=== PATIENT | male | born 1975 | race Asian ===

== ENCOUNTER 2016-11-27 09:09 | Emergency (ER) | payer OTHER ==
[~2016-11-27] VITALS: Ht 180.3 cm; Wt 82.4 kg
[2016-11-27 09:14] VITALS: TEMP 36.9; Ht 180.3 cm; Wt 82.4 kg
[2016-11-27] MEDS ORDERED: ONDANSETRON INJ 2 MG/ML 2 ML VIAL IV STA (09:46)
[2016-11-27] MEDS ORDERED: HYDROmorphone INJ 0.5 MG/0.5 ML SYR IV STA (09:46)
[2016-11-27 09:52] LABS: HEMATOCRIT 45.1 % (42-52); IG% 0.2 %; LYMPH % 5.7 %; LYMPH ABS # 0.47 K/uL (1.2-3.4); MEAN CELL VOLUME 81.7 fL (80-100); MEAN CORPUSCULAR HEMOGLOBIN 28.3 pg (25-34); MEAN CORPUSCULAR HGB CONC 34.6 g/dl (32-36); MEAN PLATELET VOLUME 9.6 fL (7.4-10.4); MONO % 2.7 %; NEUT % 91.4 %; PLATELET COUNT 239 K/uL (130-400); RED BLOOD COUNT 5.52 M/uL (4.7-6.1); WHITE BLOOD COUNT 8.19 K/uL (4.8-10.8)
[2016-11-27 09:53] LABS: COMPLETE YES
--- NOTE | 2016-11-27 09:54 | EMERGENCY ROOM VISIT NOTE ---
History Report prepared by Serg: Maribell Juares Under the Supervision of: Dr. Ino Padilla D.O. First contact with patient: 09:38 Chief Complaint: ABDOMINAL PAIN Stated Complaint: ABDOMINAL PAIN,FEVER,DIAHRREA Nursing Triage Summary: pt c/o bilat abd pain started at 0500 this am, n/v/d started yesterday am., denies any fever today. History of Present Illness The patient is a 41 year old male who presents to the Emergency Room with complaints of worsening epigastric abdominal pain starting about 5 hours ago. He describes it to be a cramping pain. He currently rates a pain intensity of 5- 7/10. He reports nausea but denies vomiting. He also reports diarrhea starting yesterday. The patient denies fevers, chills, chest pain, shortness of breath, urinary symptoms, or any other complaints. He denies any known recent ill contacts. The patient is an anesthesiologist. Source of History: patient Onset: about 5 hours ago Position: abdomen (epigastric) Symptom Intensity: 5-7/10 Timing: worsening Associated Symptoms: + diarrhea, + nausea, No chills, No fevers, No urinary symptoms, No vomiting Review of Systems See above for pertinent positives & negatives. A total of 10 systems reviewed and were otherwise negative. Past Medical & Surgical Medical Problems: (1) GERD (gastroesophageal reflux disease) Family History Patient reports no known family medical history. Social History Smoking Status: Never Smoker Drug Use: none Marital Status: Housing Status: lives with family Occupation Status: employed Current/Historical Medications Scheduled Diphenoxylate/Atropine (Lomotil 2.5-0.025 mg), 1 TAB PO QID Fluticasone Propionate (Nasal) (Flonase Allergy Relief), 1 SPRAY PETER DAILY Lansoprazole (Prevacid), 30 MG PO DAILYBD Ondasetron Odt (Zofran Odt), 4 MG SL Q6H Timolol Maleate (Timolol 0.5% Oph Soln 15 Ml), 1 DROP OPB DAILY Allergies Coded Allergies: No Known Allergies (Unverified , 11/27/16) Physical Exam Vital Signs Date Time Temp Pulse Resp B/P Pulse Ox O2 Delivery O2 Flow Rate FiO2 11/27/16 12:42 83 18 118/90 98 11/27/16 11:36 85 18 118/85 97 Room Air 3/23/17 10:54 84 18 115/78 99 Room Air 11/27/16 09:14 36.9 97 22 133/95 96 Room Air Physical Exam GENERAL: Patient is well appearing and in no acute distress. HEENT: No acute trauma, normocephalic atraumatic, mucous membranes moist, no nasal congestion, no scleral icterus. NECK: No stridor, no adenopathy, no meningismus, trachea is midline. LUNGS: No dyspnea. Clear to auscultation and equal bilaterally. No wheeze, no rhonchi. HEART: Regular rate and rhythm. No murmurs, rubs, gallops appreciated. ABDOMEN: Soft, mild epigastric tenderness, hyperactive bowel sounds, no masses appreciated, no peritonitis. BACK: No midline tenderness, no CVA tenderness EXTREMITIES: Normal motion all extremities, no cyanosis, no edema. NEUROLOGIC: Alert and oriented, no acute motor or sensory deficits, no focal weakness, cranial nerves grossly intact. SKIN: No rash, no jaundice, no diaphoresis. Medical Decision & Procedures Laboratory Results 11/27/16 09:40 Red Blood Count 5.52, Mean Corpuscular Volume 81.7, Mean Corpuscular Hemoglobin 28.3, Mean Corpuscular Hemoglobin Concent 34.6, Mean Platelet Volume 9.6, Neutrophils (%) (Auto) 91.4, Lymphocytes (%) (Auto) 5.7, Monocytes (%) (Auto) 2.7, Eosinophils (%) (Auto) 0.0, Basophils (%) (Auto) 0.0, Neutrophils # (Auto) 7.48, Lymphocytes # (Auto) 0.47, Monocytes # (Auto) 0.22, Eosinophils # (Auto) 0.00, Basophils # (Auto) 0.00 11/27/16 09:40 Test 11/27/16 09:35 11/27/16 09:40 Urine Color DK YELLOW Urine Appearance CLEAR (CLEAR) Urine pH 5.5 (4.5-7.5) Urine Specific [place] 1.039 (1.000-1.030) Urine Protein 1+ (NEG) Urine Glucose (UA) TRACE (NEG) Urine Ketones NEG (NEG) Urine Occult Blood NEG (NEG) Urine Nitrite NEG (NEG) Urine Bilirubin NEG (NEG) Urine Urobilinogen NEG (NEG) Urine Leukocyte Esterase NEG (NEG) Urine WBC (Auto) 1-5 /hpf (0-5) Urine RBC (Auto) 0-4 /hpf (0-4) Urine Hyaline Casts (Auto) 1-5 /lpf (0-5) Urine Epithelial Cells (Auto) 10-20 /lpf (0-5) Urine Bacteria (Auto) NEG (NEG) White Blood Count 8.19 K/uL (4.8-10.8) Red Blood Count 5.52 M/uL (4.7-6.1) Hemoglobin 15.6 g/dL (14.0-18.0) Hematocrit 45.1 % (42-52) Mean Corpuscular Volume 81.7 fL (80-100) Mean Corpuscular Hemoglobin 28.3 pg (25-34) Mean Corpuscular Hemoglobin Concent 34.6 g/dl (32-36) Platelet Count 239 K/uL (130-400) Mean Platelet Volume 9.6 fL (7.4-10.4) Neutrophils (%) (Auto) 91.4 % Lymphocytes (%) (Auto) 5.7 % Monocytes (%) (Auto) 2.7 % Eosinophils (%) (Auto) 0.0 % Basophils (%) (Auto) 0.0 % Neutrophils # (Auto) 7.48 K/uL (1.4-6.5) Lymphocytes # (Auto) 0.47 K/uL (1.2-3.4) Monocytes # (Auto) 0.22 K/uL (0.11-0.59) Eosinophils # (Auto) 0.00 K/uL (0-0.5) Basophils # (Auto) 0.00 K/uL (0-0.2) RDW Standard Deviation 41.9 fL (36.4-46.3) RDW Coefficient of Variation 13.9 % (11.5-14.5) Immature Granulocyte % (Auto) 0.2 % Immature Granulocyte # (Auto) 0.02 K/uL (0.00-0.02) Anion Gap 12.0 mmol/L (3-11) Est Creatinine Clear Calc Drug Dose 103.5 ml/min Estimated GFR () 107.9 Estimated GFR (Non- 93.1 BUN/Creatinine Ratio 27.6 (10-20) Calcium Level 9.3 mg/dl (8.5-10.1) Total Bilirubin 0.4 mg/dl (0.2-1) Direct Bilirubin < 0.1 mg/dl (0-0.2) Aspartate Amino Transf (AST/SGOT) 27 U/L (15-37) Alanine Aminotransferase (ALT/SGPT) 65 U/L (12-78) Alkaline Phosphatase 59 U/L (45-117) Total Protein 8.6 gm/dl (6.4-8.2) Albumin 4.3 gm/dl (3.4-5.0) Lipase 64 U/L (73-393) Laboratory results as reviewed by me. Medications Administered Medications (Trade) Dose Ordered Sig/[place] Route Start Time Stop Time Status Last Admin Dose Admin Sodium Chloride (Nss 1000ml) 1,000 ml @ 999 mls/hr Q1H1M IV 11/27/16 10:00 11/27/16 12:01 DC 11/27/16 11:35 999 MLS/HR Ondansetron HCl (Zofran Inj) 4 mg NOW STAT IV 11/27/16 09:46 11/27/16 09:49 DC 11/27/16 10:01 4 MG Hydromorphone HCl (Dilaudid Inj) 0.5 mg NOW STAT IV 11/27/16 09:46 11/27/16 09:49 DC 11/27/16 10:02 0.5 MG ED Course 0938: The patient was evaluated in room B12B. A complete history and physical exam was performed. 0946: Zofran Inj 4 mg IV 1000: Sodium Chloride 1000 ml @ 999 mls/hr IV 1230: Reevaluated the patient. Discussed results and discharge instructions: He verbalized understanding and agreement. The patient is ready for discharge. Medical Decision Differential diagnosis: Etiologies such as appendicitis, diverticulitis, PUD, biliary pathology, UTI, pancreatitis, obstruction, mesenteric ischemia, aortic pathology, infections, inflammatory bowel disease, renal colic, as well as others were entertained. Patient is a 41-year-old male who is an anesthesiologist for the [employer], he was in his normal state of health until approximately 11 PM last night which she started have diarrhea. He has not able to hydrate adequately and feels dehydrated, he is also having increasing crampy abdominal pain. Her half milligram Dilaudid patient's pain is now 2 out of 10 his nausea is improved, after 2 L of fluid hydration I will discharge him home in improved stable condition. He will be given a prescription for Zofran as well as multiple to take as needed. Impression Primary Impression: Diarrhea Scribe Attestation The scribe's documentation has been prepared under my direction and personally reviewed by me in its entirety. I confirm that the note above accurately reflects all work, treatment, procedures, and medical decision making performed by me. Departure Information Dispostion Home / Self-Care Prescriptions Diphenoxylate/Atropine (Lomotil 2.5-0.025 mg) 1 Ea Tab 1 TAB PO QID for 5 Days, #20 TAB Prov: Ino Padilla D.OTaz 11/27/16 Ondasetron Odt (ZOFRAN ODT) 4 Mg Tab 4 MG SL Q6H for Nausea, #15 TAB Prov: Ino Padilla D.O. 11/27/16 Referrals Balbina Thomson D.O. Forms Call Back Authorization, HOME CARE DOCUMENTATION FORM, IMPORTANT VISIT INFORMATION Patient Instructions Diarrhea, My [facility] Additional Instructions Return to the ED if you're unable to keep fluids down or not able to take in enough fluids. Use Lomotil as needed if the diarrhea does not slow down and the next 24 hours. Work Instructions Return To Work: 2 days Specific Date: 11/27 & 11/28
[2016-11-27] MEDS: SODIUM CHLORIDE 0.9% 1000ML 1,000 ML IV SCH ×2 (10:01→11:35)
[2016-11-27 10:05] LABS: URINE APPEARANCE CLEAR (CLEAR); URINE BILIRUBIN NEG (NEG); URINE COLOR DK YELLOW; URINE NITRITE NEG (NEG); URINE PH 5.5 (4.5-7.5); URINE SPECIFIC GRAVITY 1.039 (1.000-1.030); UROBILINOGEN NEG (NEG); ZZUR CULT IF INDIC CLEAN CATCH NO
[2016-11-27 10:11] LABS: ALT/SGPT 65 U/L (12-78); AST/SGOT 27 U/L (15-37); BLOOD UREA NITROGEN 28 mg/dl (7-18); BUN/CREATININE RATIO 27.6 (10-20); CALCIUM 9.3 mg/dl (8.5-10.1); CARBON DIOXIDE 22 mmol/L (21-32); CHLORIDE 106 mmol/L (98-107); GLUCOSE 145 mg/dl (70-99); POTASSIUM 3.5 mmol/L (3.5-5.1); SODIUM 140 mmol/L (136-145)
[2016-11-27 10:15] LABS: ALKALINE PHOSPHATASE 59 U/L (45-117)
[2016-11-27 10:21] LABS: MANUAL MICROSCOPIC REQUIRED? NO; REVIEW REQ? NO
[2016-11-27] MEDS ORDERED: TMPOPS15 OPB (10:24)
[2016-11-27] MEDS ORDERED: FLUT0.15 NAE (10:24)
[2016-11-27] MEDS ORDERED: LANS30CA12 PO (10:24)
[2016-11-27] MEDS ORDERED: ONDA4TAB10 SL (11:37)
[2016-11-27] MEDS ORDERED: DPH/ PO (11:38)
[2016-11-27 12:42] VITALS: BP 118/90; PULSE 83; O2SAT 98
== END 2016-11-27 12:45 | disposition home or self-care (01) ==
LOC: C.EDB 09:12
DX: R19.7 Diarrhea, unspecified (principal); K21.9 Gastro-esophageal reflux disease without esophagitis; Z79.899 Other long term (current) drug therapy